=== PATIENT | female | born 1970 | race Asian ===

== ENCOUNTER 2024-06-23 02:17 | Observation (INO) | payer MEDICAID ==
--- NOTE | 2024-06-23 02:23 | ED Physician Documentation ---
PD HPI FOCAL NEURO - Stated complaint Stated Complaint: R SIDE FACE DROOPING - History obtained from History obtained from: Patient - Additional information Additional information: HPI from patient. Patient complains of right facial droop. 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 She did not notice it at any time during the day, although she says that yesterday morning when eating breakfast (approximately 20 hours LOAD OUT PERSON), foods seem to get stuck in her right cheek and liquids were occasionally leaking out of the right side of her mouth during the day. She denies h/o similar symptoms. She denies any other neurologic c/o including numbness, PFEIFFER, visual changes. She denies weakness anywhere besides her right face (no extremity weakness). Review of Systems Constitutional: reports: Reviewed and negative Eyes: reports: Reviewed and negative Ears: reports: Reviewed and negative Cardiac: reports: Reviewed and negative Respiratory: reports: Reviewed and negative GI: reports: Reviewed and negative Neurologic: reports: Focal weakness. denies: Generalized weakness, Numbness, Confused, Altered mental status, Headache, Head injury PD PAST MEDICAL HISTORY - Past Medical History Past Medical History: No - Present Medications Home Medications: Ambulatory Orders Medication Instructions Recorded Confirmed No Known Home Medications 06/23/24 06/23/24 - Allergies Allergies/Adverse Reactions: Allergies Allergy/AdvReac Type Severity Reaction Status Date / Time No Known Drug Allergies Allergy Verified 06/23/24 02:29 PD ED PE NORMAL - Vitals Vital signs reviewed: Yes - General General: Alert and oriented X 3, No acute distress, Well developed/nourished - HEENT HEENT: Atraumatic, PERRL, EOMI - Neck Neck: Supple, no meningeal sign - Cardiac Cardiac: RRR, No murmur - Respiratory Respiratory: No respiratory distress, Clear bilaterally - Abdomen Abdomen: Soft, Non tender - Derm Derm: Normal color, Warm and dry - Extremities Extremities: No edema - Neuro Neuro: Alert and oriented X 3 Eye Opening: Spontaneous Motor: Obeys Commands Verbal: Oriented GCS Score: 15 PD ED PE EXPANDED - Neuro Neuro: CN deficit (right CN VII palsy) NIHSS - Time Time: 02:35 - Level of Consciousness Level of consciousness: (0) Alert, Keenly responsive LOC Questions: (0) Answers both Q's correct LOC Commands: (0) Performs both correctly - Gaze Best Gaze: (0) Normal - Visual Visual: (0) No loss - Facial Palsy Facial Palsy: (2) Partial paralysis - Motor Arms (both separate) Motor Arm (right): (0) No drift Motor Arm (left): (0) No drift - Motor Legs (both separate) Motor Leg (right): (0) No drift Motor Leg (left): (0) No drift - Limb Ataxia Limb Ataxia: (0) Absent - Sensory Sensory: (0) Normal - Best Language Best Language: (0) No aphasia - Dysarthria Dysarthria: (0) Normal - Extinction and Inattention (formally neg Extinction and inattention: (0) No abnormality - Total Score/Results Total Score/Result: 2 Results - Vitals Vitals: Vital Signs - 24 hr 06/23/24 06/23/24 06/23/24 02:26 02:42 02:58 Temperature 35.3 C L Heart Rate 93 86 81 Respiratory 18 16 16 Rate Blood Pressure 254/114 H 214/115 H 217/86 H O2 Saturation 100 100 99 06/23/24 06/23/24 06/23/24 03:20 03:25 03:30 Temperature Heart Rate 84 81 82 Respiratory 18 18 18 Rate Blood Pressure 203/105 H 204/105 H 203/102 H O2 Saturation 100 100 100 06/23/24 06/23/24 06/23/24 03:35 03:50 04:05 Temperature Heart Rate 86 80 82 Respiratory 18 16 Rate Blood Pressure 204/105 H 202/106 H 191/110 H O2 Saturation 100 100 06/23/24 06/23/24 04:20 04:30 Temperature Heart Rate 87 82 Respiratory 20 18 Rate Blood Pressure 213/107 H 202/120 H O2 Saturation 99 100 Oxygen O2 Source Room air - EKG (time done) No standard instances EKG releavant findings:: EKG personally interpreted by author of this note. Relevant findings are: Rate: Rate (enter#) (91) Rhythm: NSR [place]: LAD Intervals: Normal MS QRS: Normal Ischemia: Normal ST segments - Labs Labs: Laboratory Tests 06/23/24 06/23/24 06/23/24 02:52 02:52 02:52 WBC 6.9 RBC 4.73 Hgb 13.4 Hct 41.7 MCV 88.2 MCH 28.3 MCHC 32.1 RDW 12.5 Plt Count 266 MPV 8.6 Neut # (Auto) 4.2 Lymph # (Auto) 2.0 [place] # (Auto) 0.5 Eos # (Auto) 0.1 Baso # (Auto) 0.0 Absolute Nucleated RBC 0.00 Nucleated RBC % 0.0 PT 11.8 INR 1.1 APTT 34.6 H Sodium 139 Potassium 3.5 Chloride 104 Carbon Dioxide 27 Anion Gap 8.0 BUN 16 Creatinine 0.8 Estimated GFR (MDRD) 75 L Glucose 127 H Calcium 9.7 Total Bilirubin 0.6 AST 19 ALT 15 Alkaline Phosphatase 52 Total Protein 7.9 Albumin 4.7 Globulin 3.2 Albumin/Globulin Ratio 1.5 Triglycerides Cholesterol LDL Cholesterol, Calc VLDL Cholesterol HDL Cholesterol LDL/HDL Ratio Cholesterol/HDL Ratio Lipase 32 06/23/24 02:52 WBC RBC Hgb Hct MCV MCH MCHC RDW Plt Count MPV Neut # (Auto) Lymph # (Auto) [place] # (Auto) Eos # (Auto) Baso # (Auto) Absolute Nucleated RBC Nucleated RBC % PT INR APTT Sodium Potassium Chloride Carbon Dioxide Anion Gap BUN Creatinine Estimated GFR (MDRD) Glucose Calcium Total Bilirubin AST ALT Alkaline Phosphatase Total Protein Albumin Globulin Albumin/Globulin Ratio Triglycerides 210 Cholesterol 186 LDL Cholesterol, Calc 104 VLDL Cholesterol 42 HDL Cholesterol 40 L LDL/HDL Ratio 2.6 Cholesterol/HDL Ratio 4.7 Lipase - Rads (name of study) CTH stroke protocol Relevant Findings:: Prelim report reviewed, See rad report CXR Relevant Findings:: Prelim report reviewed, See rad report CTA head/neck Relevant Findings:: Prelim report reviewed, See rad report PD Medical Decision Making - ED course Complexity details: reviewed results, re-evaluated patient, considered differential, d/w patient ED course: Patient presents with right-sided facial droop. Mina's palsy is highly suspect. I consulted with Dr. Lomeli (neurologist on-call for the telestroke service), and he recommends proceeding with stroke-oriented work-up (including CTH, CTA head/neck). He will recontact me once he has a chance to review these images. Regarding thrombolytics, thrombolytics are not appropriate in this particular case for 2 main reasons: (1) the patient's description of symptoms and the findings on physical exam are most consistent with Mina's palsy and not CVA, and (2) last known normal is unclear. While the patient first noticed the facial droop approximately 2 hours prior to arrival, she also comments on difficulty with food and liquids since yesterday morning on the right side of her mouth, which suggests the symptoms started well outside of a 3-hour window. Given these two factors, I believe the potential risks of thrombolytics outweigh the potential benefits. Another consideration regarding thrombolytics is the low NIHSS (2). Yet another consideration is persistently high blood pressures (210s/110s); will give labetalol and titrate to affect blood pressure control. Upon completion of ED testing including CTH, CTA head/neck, blood tests, CXR, EKG, I heard back from Dr. oLmeli. He recommends admission for completion of C VA testing (specifically MRI, echocardiogram). He recommends ASA and statin. I then d/w Dr. Valladares ([facility]) who accepts patient for admission to hospitalist service at [facility]. - TPA CVA checklist Inclusion crititeria: positive: Sig neuro deficit, CT no bleed. negative: Onset know < 4.5 hr Relative contraindications: positive: Too mild Departure - Departure Disposition: ED Place in Observation Clinical Impression: Facial droop Hypertension Qualifiers: Hypertension type: unspecified Qualified Code(s): I10 - Essential (primary) hypertension Condition: Stable Discharge Date/Time: 06/23/24 05:13
[2024-06-23] MEDS ORDERED: iohexoL-300 100 ML VIAL ONE ×2 (02:51→10:58)
[2024-06-23 02:56] LABS: BASOPHILS % (AUTO) 0.3 %; EOSINOPHILS # (AUTO) 0.1 10^3/uL (0.0-0.7); EOSINOPHILS % (AUTO) 1.7 %; HCT - HEMATOCRIT 41.7 % (37.0-47.0); HGB - HEMOGLOBIN 13.4 g/dL (12.0-16.0); LYMPHOCYTES % (AUTO) 28.8 %; MEAN CORPUSCULAR HEMOGLOBIN 28.3 pg (27.0-31.0); MEAN CORPUSCULAR HGB CONC 32.1 g/dL (32.0-36.0); MEAN CORPUSCULAR VOLUME 88.2 fL (81.0-99.0); MEAN PLATELET VOLUME 8.6 fL (7.9-10.8); MONOCYTES # (AUTO) 0.5 10^3/uL (0.0-1.0); MONOCYTES % (AUTO) 7.4 %; NEUTROPHILS # (AUTO) 4.2 10^3/uL (1.5-6.6); NEUTROPHILS % (AUTO) 61.5 %; PLT - PLATELET COUNT 266 10^3/uL (130-450); RED BLOOD COUNT 4.73 10^6/uL (4.20-5.40); RED CELL DISTRIBUTION WIDTH 12.5 % (12.0-15.0); WHITE BLOOD COUNT 6.9 x10^3/uL (4.8-10.8)
[2024-06-23 03:05] LABS: PARTIAL THROMBOPLASTIN TIME 34.6 secs (24.9-33.3)
[2024-06-23 03:10] LABS: INR 1.1 (0.8-1.2); PT - PROTHROMBIN TIME 11.8 secs (9.9-12.6)
[2024-06-23 03:15] LABS: ALBUMIN 4.7 g/dL (3.2-5.5); ALBUMIN/GLOBULIN RATIO 1.5 (1.0-2.2); BILIRUBIN,TOTAL 0.6 mg/dL (0.2-1.0); CALCIUM 9.7 mg/dL (8.5-10.3); CREATININE 0.8 mg/dL (0.6-1.3); POTASSIUM 3.5 mmol/L (3.5-4.5); TOTAL PROTEIN 7.9 g/dL (6.4-8.9)
[2024-06-23] MEDS: LABETALOL 20 MG/4 ML SYRINGE IVP STA (03:20)
[2024-06-23] MEDS: iohexoL-300 100 ML VIAL IVP ONE (03:23)
[2024-06-23] MEDS: ASPIRIN CHEW 81 MG TABLET PO STA (04:33)
[2024-06-23] MEDS ORDERED: ACETAMINOPHEN 325 MG TABLET PO PRN (04:34)
[2024-06-23] MEDS ORDERED: SODIUM CHLORIDE FLUSH 0.9% 10 ML SYRINGE IVP PRN (04:34)
[2024-06-23] MEDS ORDERED: ONDANSETRON 4 MG/2 ML VIAL IVP PRN (04:34)
--- NOTE | 2024-06-23 04:50 | HISTORY & PHYSICAL EXAMINATION ---
Chief Complaint - Chief Complaint Chief Complaint: right sided facial droop History of Present Illness - Admitted From Admitted From:: ED - History Obtained From Records Reviewed: EMR History obtained from: Patient and ED Exam Limitations: Telemedicine - History of Present Illness HPI Comment/Other: 54F c no significant medical hx p/w right facial droop. Patient reports sxs started around 2300 prior to getting ready for bed. Patient earlier had noted eating with liquid dripping out the side of her mouth. Patient otherwise mentioned no headache. No fever. No URI sxs. No vision change. No trauma. Patient presented to the ED and underwent CT imaging. ED reports c tele neurologist and received recommendation to proceed with stroke workup. Meds/Allgy - Home Medications Home Medications: Ambulatory Orders Medication Instructions Recorded Confirmed No Known Home Medications 06/23/24 06/23/24 - Allergies Allergies/Adverse Reactions: Allergies Allergy/AdvReac Type Severity Reaction Status Date / Time No Known Drug Allergies Allergy Verified 06/23/24 02:29 Review of Systems - Other Findings Other Findings: negative unless mentioned differently Exam - Vital Signs Reviewed Vital Signs: Yes Vital Signs: Vital Signs x48h Temp Pulse Resp BP Pulse Ox 06/23/24 04:30 82 18 202/120 H 100 06/23/24 04:20 87 20 213/107 H 99 06/23/24 04:05 82 16 191/110 H 100 06/23/24 03:50 80 18 202/106 H 100 06/23/24 03:35 86 204/105 H 06/23/24 03:30 82 18 203/102 H 100 06/23/24 03:25 81 18 204/105 H 100 06/23/24 03:20 84 18 203/105 H 100 06/23/24 02:58 81 16 217/86 H 99 06/23/24 02:42 86 16 214/115 H 100 06/23/24 02:26 35.3 C L 93 18 254/114 H 100 - Physical Exam General Appearance: positive: No acute distress, Alert Eyes Bilateral: positive: Normal inspection ENT: positive: ENT inspection nml, Other (right facial droop) Neck: positive: Nml inspection Extremities: positive: Nml appearance Neurologic/Psychiatric: positive: Oriented x3, CN's nml (2-12), Sensation nml, Weakness (right facial droop) Conclusion/Plan - Problem List (1) Facial droop Conclusion/Plan: unclear etiology of the right facial droop. stroke vs [place] Palsy. per tele neurology recommendation, proceed with MRI/MRA brain/head/neck. neuro checks. tele monitoring. echo (2) Hypertension Conclusion/Plan: significantly elevated BP. no prior hx of HTN. will followup MRI/MRA to prior to management of hypertension. Qualifiers: Hypertension type: unspecified Qualified Code(s): I10 - Essential (primary) hypertension - Lab Results Lab results reviewed: Yes Fish Bones: 06/23/24 02:52 06/23/24 02:52 - Diagnostic Imaging Results Diagnostic Imaging Results: positive: Other (spoke to ED staff. imaging pending) Core Measures - Anticipated LOS I expect patient to be DC'd or transferred within 96 hours.: Yes - Issues Hospital Issues and Management Plan: The patient consented to receive this telemedicine service, which I performed via live two-way audiovisual equipment. The patient is at ([facility]) and I am physically in [facility]. A nurse assisted me in the visit. Full code SCD Observation Meg Valladares DO Internal Medicine [employer] Tele Joint Setter - DVT/VTE - Prophylaxis VTE/DVT Device ordered at admit?: Yes Telemedicine Consult Details - Provider Location & Consult Time Telemedicine consultation conducted via videoconferencing?: Yes List names and roles of persons who participated in consult:: ED staff and patient Telemedicine provider location:: [facility] Time Telemedicine consult began:: 04:25 Time Telemedicine consult completed:: 05:25
[2024-06-23 05:16] LABS: CHOL/HDL RATIO 4.7 (<4.4); CHOLESTEROL 186 mg/dL; HDL CHOLESTEROL 40 mg/dL; LDL CHOLESTEROL,CALCULATED 104 mg/dL; LDL/HDL RATIO 2.6 (<4.4); TRIGLYCERIDES 210 mg/dL; VLDL CHOLESTEROL 42 mg/dL
[2024-06-23] MEDS: ATORVASTATIN 40 MG TABLET PO SCH (05:58)
[2024-06-23] MEDS ORDERED: GADOTERATE MEGLUMINE 10 MMOL/20 ML VIAL ONE (07:40)
[2024-06-23] MEDS: ASPIRIN EC 81 MG TABLET PO SCH (08:35)
[2024-06-23 09:04] LABS: AMPHETAMINE SCREEN,URINE NEGATIVE (NEGATIVE); BARBITURATE SCREEN,UR NEGATIVE (NEGATIVE); BENZODIAZEPINES SCREEN, URINE NEGATIVE (NEGATIVE); BUPRENORPHINE SCREEN, URINE NEGATIVE (NEGATIVE); COCAINE SCREEN URINE NEGATIVE (NEGATIVE); METHADONE SCREEN, URINE NEGATIVE (NEGATIVE); METHAMPHETAMINES SCREEN, URINE NEGATIVE (NEGATIVE); OPIATE SCREEN, URINE NEGATIVE (NEGATIVE); OXYCODONE SCREEN, URINE NEGATIVE (NEGATIVE); THC CANNABINOID SCREEN, URINE NEGATIVE (NEGATIVE); TRICYCLIC ANTIDEPRESSANT,URINE NEGATIVE (NEGATIVE)
--- NOTE | 2024-06-23 09:25 | CT Report ---
PROCEDURE: Head W/O Stroke Protocol INDICATIONS: right facial droop TECHNIQUE: Noncontrast 4.5 mm thick angled axial sections acquired from the foramen magnum to the vertex, with c oronal reformats. For radiation dose reduction, the following was used: automated exposure control, adjustment of mA and/or kV according to patient size. COMPARISON: None. FINDINGS: Image quality: Excellent. CSF spaces: Basal cisterns are patent. No extra-axial fluid collections. Ventricles are normal in size and shape. Brain: No midline shift. No intracranial masses or hemorrhage. [place]-white matter interface is norm al. Mild to moderate periventricular deep white matter hypodensities, nonspecific, most commonly rep resenting sequelae of small vessel ischemic change. Skull and face: Calvarium and visualized facial bones are intact, without suspicious lesions. Sinuses: Visualized sinuses and mastoids are clear. IMPRESSION: No acute intracranial process. Mild to moderate periventricular deep white matter hypodensities. Typi desi, this represents sequelae of small vessel ischemic change. Comment: Brain MRI may be helpful. Findings are concordant with preliminary interpretation provided by [facility], which wa s completed on 06/23/2024 at 0333 hours. This study fulfills neurological imaging criteria for inclusion or exclusion of acute stroke therapie s based on available published neurological imaging guidelines. Reviewed by: Canelo Rucker MD on 06/23/2024 9:24 AM PDT Approved by: Canelo Rcuker MD on 06/23/2024 9:24 AM PDT Station ID: [id number]
--- NOTE | 2024-06-23 09:39 | XRAY Report ---
PROCEDURE: Chest 2V INDICATIONS: right facial droop TECHNIQUE: 2 views of the chest were acquired. COMPARISON: None. FINDINGS: Surgical changes and devices: None. Lungs and pleura: No pleural effusions or pneumothorax. Lungs are clear. Mediastinum: Mediastinal contours appear normal. Heart size is normal. Bones and chest wall: No suspicious bony lesions. Overlying soft tissues appear unremarkable. IMPRESSION: No acute cardiopulmonary process. Findings are concordant with preliminary interpretation provided by [facility]. Reviewed by: Brett Villafuerte MD on 06/23/2024 9:37 AM PDT Approved by: Brett Villafuerte MD on 06/23/2024 9:37 AM PDT Station ID: [id number]
--- NOTE | 2024-06-23 09:40 | CT Report ---
PROCEDURE: Angio Head/Neck INDICATIONS: right facial droop TECHNIQUE: After the administration of intravenous contrast, 1 mm thick sections acquired from the aortic arch t hrough the [place]. 3-dimensional [id number]-[id number]-[id number] (MIP) and/or volume renderin g reformats were acquired of the central intracranial vasculature and neck separately. For radiation dose reduction, the following was used: automated exposure control, adjustment of mA and/or kV acco rding to patient size. CONTRAST: Omni 300, 80mls COMPARISON: CT head from the same date. FINDINGS: Image quality: Diagnostic. HEAD CT: CSF Spaces: Basal cisterns are patent. No extra-axial fluid collections. Ventricles are normal in size and shape. Brain: No acute intracranial process. Mild to moderate periventricular hypodensities. Skull and face: Calvarium and visualized facial bones appear intact, without suspicious lesions. Sinuses: Visualized sinuses and mastoids are clear. HEAD CT ANGIOGRAPHY: Anterior circulation: Intracranial internal carotid arteries are normal in size and flow. The flow within the paired anterior cerebral arteries is normal and symmetric. The flow within the middle cer ebral arteries is normal and symmetric. The anterior communicating artery is seen. No aneurysms are seen. Posterior circulation: Visualized portions of the vertebral arteries demonstrate normal caliber, and join to form a normal appearing basilar artery. Flow within the posterior cerebral arteries is norm al and symmetric. No aneurysms are seen. NECK CT ANGIOGRAPHY: Carotid system: The great vessels demonstrate a conventional anatomy as they arise from the aortic a rch. The origins of the common carotid arteries appear patent. The common carotid arteries demonstr ate normal caliber and courses. The bifurcation regions are both widely patent. The internal caroti d arteries demonstrate normal calibers and courses. Posterior circulation: The origins of the vertebral arteries both appear widely patent. The more talley perior extracranial portions of both vertebral arteries also demonstrate normal courses and calibers. They join to form a normal appearing basilar artery. Soft tissues: Visualized neck soft tissues demonstrate no suspicious abnormalities. Bones: No suspicious bony lesions. Visualized cervical spine appears normally aligned. There is a broad-based right paracentral disc protrusion at C5-C6 which results in moderate canal stenosis. Refe rence sagittal images 42 and 43 of series 9. IMPRESSION: No significant intracranial arterial abnormality is seen. No significant abnormality is seen within the arteries of the neck. A disc protrusion at C5-C6 is incidentally noted, resulting in moderate canal stenosis. Findings are concordant with preliminary interpretation provided by [facility]. The estimate of stenosis included in the report of the imaging study was calculated using the NASCET method Reviewed by: Canelo Rucker MD on 06/23/2024 9:38 AM PDT Approved by: Canelo Rucker MD on 06/23/2024 9:38 AM PDT Station ID: [id number]
[2024-06-23] MEDS: SODIUM CHLORIDE FLUSH 0.9% 10 ML SYRINGE IVP SCH (09:47)
[2024-06-23 11:36] LABS: ESTIMATED AVERAGE GLUCOSE 126 mg/dL (70-100)
--- NOTE | 2024-06-23 12:04 | PROVIDER PROGRESS NOTE ---
Subjective - Prog Note Date Prog Note Date: 06/23/24 Prog Note Time: 09:00 - Subjective Pt reports feeling: No change Subjective: Ms. Sanderson presented to the ED on 06/22 in the evening with CN VII deficit on the right. She had a right facial droop, difficulty closing the eyelid, and asymmetric eyebrow raise. Sensation is intact. She reports noticing difficulty with chewing food and fluid leaking out of her right cheek in the morning. Last night she noticed facial droop when she looked in the mirror and came in 2 hrs after she noticed the droop. Initial differential was Mina's palsy vs CVA in the ED, with Mina's palsy being the leading differential. She was treated with atorvastatin and loading dose of ASA at the recommendation of the teleneurologist while she was worked up for CVA. Her symptoms exceeded the window for TPA and it was determined she was not a candidate if her deficit was related to a CVA. No treatment for Mina's palsy was initiated in the ED as she is still in the diagnostic workup. Upon assessment this morning she is seated in bed, alert and oriented, without slurred speech. She has no other neuro deficits aside from the right facial droop, ambulates without difficulty, negative arm drift, EOM intact, no visual deficits, no headache, no dizziness. She reports intermittent pain in her right zygomatic and mandibular area over the past 2 days, described as a dull ache, not currently present, and has a loose 2nd molar in her upper jaw. She denies any viral prodrome or recent illness, trauma, or oral lesions. She has no tenderness or fluctuance around the molar on examination. She has no previous episodes of facial paralysis and has not seen a PCP in 5 years or established care since she moved to [facility] 5 years ago. She has not seen a dentist in years. She states her father had Mina's palsy 18 years ago and was left with permanent facial droop. She denies cough, nasal congestion, sore throat, neck stiffness, joint pain, chest pain, abdominal pain, nausea, vomitting, diarrhea or constipation, or dysuria. At this time, her presentation is consistent with Mina's palsy. I will complete the work-up for CVA, including head/neck MRI and ECHO. I will also get a maxillofacial CT to evaluate for dental pathology. She will be started on prednisone for 7 days and a lyme test will be done. At this time, there is no indication for anti-viral medication and I will wait on the maxillofacial CT to determine if antibiotics are needed. Current Medications - Current Medications Current Medications: Active Medications Generic Name Dose Route Start Last Admin Trade Name Freq PRN Reason Stop Dose Admin Acetaminophen 650 mg 06/23/24 04:34 Acetaminophen 325 Mg Tablet PO Q4HR PRN Pain 1 to 4, or Fever Aspirin 81 mg 06/23/24 09:00 06/23/24 08:35 Aspirin Ec 81 Mg Tablet PO Not Given DAILY [facility] Atorvastatin Calcium 40 mg 06/23/24 04:33 06/23/24 08:35 Atorvastatin 40 Mg Tablet PO Not Given DAILY [facility] Chlorhexidine Gluconate 15 ml 06/23/24 12:00 Chlorhexidine Gluconate 15 Ml Udc PO BID [facility] Labetalol HCl 20 mg 06/23/24 08:28 Labetalol 20 Mg/4 Ml Syringe IVP Q4HR PRN Blood Pressure Ondansetron HCl 4 mg 06/23/24 04:34 Ondansetron 4 Mg/2 Ml Vial IVP Q6HR PRN Nausea / Vomiting Sodium Chloride 10 ml 06/23/24 04:34 Sodium Chloride Flush 0.9% 10 Ml Syringe IVP PRN PRN NEEDED PER PROVIDER ORDERS Sodium Chloride 10 ml 06/23/24 09:00 06/23/24 09:47 Sodium Chloride Flush 0.9% 10 Ml Syringe IVP 10 ml 0100,0900,1700 [facility] Administration No Known Home Medications 06/23/24 Objective - Vital Signs/Intake & Output Reviewed Vital Signs: Yes Vital Signs: Vital Signs x48h Temp Pulse Pulse Resp BP BP BP 06/23/24 07:40 36.5 C 76 16 160/105 H 06/23/24 05:41 36.6 C 84 18 181/105 H 06/23/24 05:00 82 190/113 H 06/23/24 04:30 82 18 202/120 H 06/23/24 04:20 87 20 213/107 H 06/23/24 04:05 82 16 191/110 H Pulse Ox 06/23/24 07:40 98 06/23/24 05:41 98 06/23/24 05:00 06/23/24 04:30 100 06/23/24 04:20 99 06/23/24 04:05 100 Intake & Output: Intake & Output 06/20/24 06/21/24 06/22/24 06/23/24 23:59 23:59 23:59 23:59 Intake Total 100 Output Total 0 Balance 100 - Objective General Appearance: positive: No acute distress, Other (54 y/o female, alert and conversant, with right sided facial droop) Eyes Bilateral: positive: Normal inspection, PERRL, EOMI, Other (Difficulty with complete closure of the right eye) ENT: positive: Other (Right upper second molar loose and facing buccal mucosa, no palpable fluctuance, obvious lesion, or tenderness around the gums. (+) clicking without pain of the TMJ with jaw opening, no pain or tenderness to the right maxilla or mandible with palpation.) Neck: positive: Nml inspection Respiratory: positive: Chest non-tender, No respiratory distress, Breath sounds nml Cardiovascular: positive: Regular rate & rhythm, No murmur, No gallop Peripheral Pulses: 2+ Radial (R), 2+ Radial (L), 2+ Dorsalis pedis (R), 2+ Dorsalis pedis (L) Abdomen: positive: Non-tender, No organomegaly, No distention. negative: Guarding, Rebound Back: positive: Nml inspection Skin: positive: Color nml, No rash, Warm, Dry Extremities: positive: Non-tender, Nml appearance, No pedal edema Neurologic/Psychiatric: positive: Oriented x3, Motor nml, Sensation nml, Mood/affect nml. negative: CN's nml (2-12) (CN VII deficit on right with facial droop and absent forehead raise, difficulty closing right eye completely, sensation intact. CN II- & VIII-XII intact.) - Lab Results Fish Bones: 06/23/24 02:52 06/23/24 02:52 Other Labs: Lab Results x24hrs 06/23/24 06/23/24 06/23/24 Range/Units 08:35 07:00 02:52 WBC (4.8-10.8) x10^3/uL RBC (4.20-5.40) 10^6/uL Hgb (12.0-16.0) g/dL Hct (37.0-47.0) % MCV (81.0-99.0) fL MCH (27.0-31.0) pg MCHC (32.0-36.0) g/dL RDW (12.0-15.0) % Plt Count (130-450) 10^3/uL MPV (7.9-10.8) fL Neut # (Auto) (1.5-6.6) 10^3/uL Lymph # (Auto) (1.5-3.5) 10^3/uL [place] # (Auto) (0.0-1.0) 10^3/uL Eos # (Auto) (0.0-0.7) 10^3/uL Baso # (Auto) (0.0-0.1) 10^3/uL Absolute Nucleated RBC x10^3/uL Nucleated RBC % /100WBC PT (9.9-12.6) secs INR (0.8-1.2) APTT (24.9-33.3) secs Sodium (135-145) mmol/L Potassium (3.5-4.5) mmol/L Chloride (101-111) mmol/L Carbon Dioxide (21-32) mmol/L Anion Gap (6-13) BUN (6-20) mg/dL Creatinine (0.6-1.3) mg/dL Estimated GFR (MDRD) (>89) Glucose (74-104) mg/dL POC Whole Bld Glucose 114 H (70 - 100) mg/dL Estimat Average Glucose 126 H (70-100) mg/dL Hemoglobin A1c % 6.0 (4.27-6.07) % Calcium (8.5-10.3) mg/dL Total Bilirubin (0.2-1.0) mg/dL AST (10-42) IU/L ALT (10-60) IU/L Alkaline Phosphatase (42-121) IU/L Total Protein (6.4-8.9) g/dL Albumin (3.2-5.5) g/dL Globulin (2.1-4.2) g/dL Albumin/Globulin Ratio (1.0-2.2) Triglycerides mg/dL Cholesterol ( - 200) mg/dL LDL Cholesterol, Calc ( - 129) mg/dL VLDL Cholesterol mg/dL HDL Cholesterol (60 - ) mg/dL LDL/HDL Ratio (<4.4) Cholesterol/HDL Ratio (<4.4) Lipase (11-82) U/L Urine Opiates Screen NEGATIVE (NEGATIVE) Ur Buprenorphine Scrn NEGATIVE (NEGATIVE) Ur Oxycodone Screen NEGATIVE (NEGATIVE) Urine Methadone Screen NEGATIVE (NEGATIVE) Ur Barbiturates Screen NEGATIVE (NEGATIVE) Ur Tricyclics Screen NEGATIVE (NEGATIVE) Ur Phencyclidine Scrn NEGATIVE (NEGATIVE) Ur Amphetamine Screen NEGATIVE (NEGATIVE) U Methamphetamines Scrn NEGATIVE (NEGATIVE) U Benzodiazepines Scrn NEGATIVE (NEGATIVE) Urine Cocaine Screen NEGATIVE (NEGATIVE) U Cannabinoids Screen NEGATIVE (NEGATIVE) Ur Drug Screen Comment CUTOFF CONC BELOW: 06/23/24 06/23/24 06/23/24 Range/Units 02:52 02:52 02:52 WBC (4.8-10.8) x10^3/uL RBC (4.20-5.40) 10^6/uL Hgb (12.0-16.0) g/dL Hct (37.0-47.0) % MCV (81.0-99.0) fL MCH (27.0-31.0) pg MCHC (32.0-36.0) g/dL RDW (12.0-15.0) % Plt Count (130-450) 10^3/uL MPV (7.9-10.8) fL Neut # (Auto) (1.5-6.6) 10^3/uL Lymph # (Auto) (1.5-3.5) 10^3/uL [place] # (Auto) (0.0-1.0) 10^3/uL Eos # (Auto) (0.0-0.7) 10^3/uL Baso # (Auto) (0.0-0.1) 10^3/uL Absolute Nucleated RBC x10^3/uL Nucleated RBC % /100WBC PT 11.8 (9.9-12.6) secs INR 1.1 (0.8-1.2) APTT 34.6 H (24.9-33.3) secs Sodium 139 (135-145) mmol/L Potassium 3.5 (3.5-4.5) mmol/L Chloride 104 (101-111) mmol/L Carbon Dioxide 27 (21-32) mmol/L Anion Gap 8.0 (6-13) BUN 16 (6-20) mg/dL Creatinine 0.8 (0.6-1.3) mg/dL Estimated GFR (MDRD) 75 L (>89) Glucose 127 H (74-104) mg/dL POC Whole Bld Glucose (70 - 100) mg/dL Estimat Average Glucose (70-100) mg/dL Hemoglobin A1c % (4.27-6.07) % Calcium 9.7 (8.5-10.3) mg/dL Total Bilirubin 0.6 (0.2-1.0) mg/dL AST 19 (10-42) IU/L ALT 15 (10-60) IU/L Alkaline Phosphatase 52 (42-121) IU/L Total Protein 7.9 (6.4-8.9) g/dL Albumin 4.7 (3.2-5.5) g/dL Globulin 3.2 (2.1-4.2) g/dL Albumin/Globulin Ratio 1.5 (1.0-2.2) Triglycerides 210 mg/dL Cholesterol 186 ( - 200) mg/dL LDL Cholesterol, Calc 104 ( - 129) mg/dL VLDL Cholesterol 42 mg/dL HDL Cholesterol 40 L (60 - ) mg/dL LDL/HDL Ratio 2.6 (<4.4) Cholesterol/HDL Ratio 4.7 (<4.4) Lipase 32 (11-82) U/L Urine Opiates Screen (NEGATIVE) Ur Buprenorphine Scrn (NEGATIVE) Ur Oxycodone Screen (NEGATIVE) Urine Methadone Screen (NEGATIVE) Ur Barbiturates Screen (NEGATIVE) Ur Tricyclics Screen (NEGATIVE) Ur Phencyclidine Scrn (NEGATIVE) Ur Amphetamine Screen (NEGATIVE) U Methamphetamines Scrn (NEGATIVE) U Benzodiazepines Scrn (NEGATIVE) Urine Cocaine Screen (NEGATIVE) U Cannabinoids Screen (NEGATIVE) Ur Drug Screen Comment 06/23/24 Range/Units 02:52 WBC 6.9 (4.8-10.8) x10^3/uL RBC 4.73 (4.20-5.40) 10^6/uL Hgb 13.4 (12.0-16.0) g/dL Hct 41.7 (37.0-47.0) % MCV 88.2 (81.0-99.0) fL MCH 28.3 (27.0-31.0) pg MCHC 32.1 (32.0-36.0) g/dL RDW 12.5 (12.0-15.0) % Plt Count 266 (130-450) 10^3/uL MPV 8.6 (7.9-10.8) fL Neut # (Auto) 4.2 (1.5-6.6) 10^3/uL Lymph # (Auto) 2.0 (1.5-3.5) 10^3/uL [place] # (Auto) 0.5 (0.0-1.0) 10^3/uL Eos # (Auto) 0.1 (0.0-0.7) 10^3/uL Baso # (Auto) 0.0 (0.0-0.1) 10^3/uL Absolute Nucleated RBC 0.00 x10^3/uL Nucleated RBC % 0.0 /100WBC PT (9.9-12.6) secs INR (0.8-1.2) APTT (24.9-33.3) secs Sodium (135-145) mmol/L Potassium (3.5-4.5) mmol/L Chloride (101-111) mmol/L Carbon Dioxide (21-32) mmol/L Anion Gap (6-13) BUN (6-20) mg/dL Creatinine (0.6-1.3) mg/dL Estimated GFR (MDRD) (>89) Glucose (74-104) mg/dL POC Whole Bld Glucose (70 - 100) mg/dL Estimat Average Glucose (70-100) mg/dL Hemoglobin A1c % (4.27-6.07) % Calcium (8.5-10.3) mg/dL Total Bilirubin (0.2-1.0) mg/dL AST (10-42) IU/L ALT (10-60) IU/L Alkaline Phosphatase (42-121) IU/L Total Protein (6.4-8.9) g/dL Albumin (3.2-5.5) g/dL Globulin (2.1-4.2) g/dL Albumin/Globulin Ratio (1.0-2.2) Triglycerides mg/dL Cholesterol ( - 200) mg/dL LDL Cholesterol, Calc ( - 129) mg/dL VLDL Cholesterol mg/dL HDL Cholesterol (60 - ) mg/dL LDL/HDL Ratio (<4.4) Cholesterol/HDL Ratio (<4.4) Lipase (11-82) U/L Urine Opiates Screen (NEGATIVE) Ur Buprenorphine Scrn (NEGATIVE) Ur Oxycodone Screen (NEGATIVE) Urine Methadone Screen (NEGATIVE) Ur Barbiturates Screen (NEGATIVE) Ur Tricyclics Screen (NEGATIVE) Ur Phencyclidine Scrn (NEGATIVE) Ur Amphetamine Screen (NEGATIVE) U Methamphetamines Scrn (NEGATIVE) U Benzodiazepines Scrn (NEGATIVE) Urine Cocaine Screen (NEGATIVE) U Cannabinoids Screen (NEGATIVE) Ur Drug Screen Comment - Diagnostic Imaging Diagnostic Imaging Results: positive: Final report reviewed Diagnostic Imaging Comments: CT angiography head/neck: no significant intracranial abnormality, no significant abnormality within the arteries of the neck, disc protrusion C5-C6 resulting in moderate canal stenosis. 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 Sensation is intact. She reports noticing difficulty with chewing food and fluid leaking out of her right cheek yesterday morning (06/22). Last night she noticed facial droop when she looked in the mirror and came in 2 hrs after she noticed the droop. She report intermittent pain in her right zygomatic and mandibular area over the past 2 days, described as a dull ache, not currently present, and has a loose 2nd molar in her upper jaw. She denies any viral prodrome or recent illness, trauma, or oral lesions. It was not clear if her symptoms were vascular or Mina's palsy in the ED, with Mina's palsy being the leading differential. She was treated with atorvastatin and loading dose of ASA at the recommendation of the teleneurologist. Her symptoms exceeded the window for TPA and it was determined she was not a candidate if her deficit was related to a CVA. I will continue ASA 81 mg and atorvastatin 40 mg while the remaining diagnostic tests are completed. At this time, I believe her symptoms are Mina's Palsy is due to inflammation arising from the loose molar along the course of the facial nerve canal. An MRI of the head and neck has been ordered to evaluate for other underlying intracranial pathology that could be contributory per the recommendation of the radiologist. A maxillofacial CT will be done to evaluate for possible dental abscess, signs of infection, or other masses which may be causing the Mina's Palsy. She has no signs of acute infection such as elevated WBCs, fever, pain, fluctuant mass or abnormal vital signs. I will start her on prednisone 60 mg QD for 7 days and order a lyme test as this can also cause CN VII palsy. There is no indication for antiviral treatment at this time. I have also ordered chlorhexadine mouth wash to prevent oral infection due to the Mina's palsy and difficulty clearing food from her right cheek. (2) Disorder of tooth Impression: She complains of intermittent dull right zygomatic and maxillary pain x2 days with a loose upper second molar. She has no pain currently. She denies pain with chewing or jaw pain, notes it has been clicking for several months. She does not receive regular dental care, has several visible carries, and states the tooth has been this way for some time. She has no fever/chills, WBCs are normal, and no temperature. Upon assessment, she has palpable clicking of the TMJ without pain on the right. She has no buccal lesions. The right upper molar is laterally dislpaced and facing outward towards the buccal area. No erythema, swelling, tenderness or fluctuance noted in the gums. I have concern for an underlying dental abscess or infection in the area of the CN VII which could be causing Mina's palsy. I have ordered a maxillofacial CT and will treat with antibiotics if signs of an infection are present. (3) Hypertension Impression: She had persistently elevated BP during her time in the ED with systolic above 200 and diastolic above 100. She was given a single dose of IV labetolol in the ED. Her last BP was 160/105. She denies vision changes, headache, chest pain, dyspnea, or pedal edema. She has not seen a PCP in 5 years and has no dx of HTN. While the hypertension could be due to CVA, it could also indicate uncontrolled primary HTN. I have ordered PRN labetolol 20 mg IV q 6 hrs. She will need to follow-up outpatient for care home BP management. Qualifiers: Hypertension type: unspecified Qualified Code(s): I10 - Essential (primary) hypertension (4) Hyperglycemia, unspecified Impression: She has an elevated blood glucose of 114 with no previous dx of DM. She does not treatment for her blood glucose at this time but I will monitor it with her starting on prednisone. I will also get an A1c to evaluate her baseline.
[2024-06-23] MEDS: predniSONE 20 MG TABLET PO SCH (12:50)
[2024-06-23] MEDS: CHLORHEXIDINE GLUCONATE 15 ML UDC PO SCH (12:50)
[2024-06-23] MEDS: LABETALOL 20 MG/4 ML SYRINGE IVP PRN (13:59)
--- NOTE | 2024-06-23 14:24 | PHARMACY PROGRESS NOTE ---
- Best Possible Medication History Admit Date and Time: 06/23/24 0434 Processed by: Pharmacy (Medication Reconciliation completed by Ciaio Lumite Injector, Mandi) Medications reviewed in ED?: No Medication History completed: Yes Patient Interview: Completed Secondary Source(s): Insurance records As the person ultimately responsible for medication therapy, providers are able to order a medication from an existing home medication list in [facility] via the "Reconcile Routine" prior to Confirmation of that medication by business support manager. Such practice is discouraged except when the physician, in their clinical judgment, deems that a medical need exists for a medication without regard to previous use.
--- NOTE | 2024-06-23 14:56 | MRI Report ---
PROCEDURE: Brain W/WO INDICATIONS: stroke workup CONTRAST: Clariscan 19.6ml TECHNIQUE: Noncontrast axial T1 spin echo, axial T2 fast spin echo, sagittal and axial FLAIR, coronal T2 fast sp in echo, axial gradient echo, axial diffusion and ADC through the brain. After the administration of contrast, axial and coronal T1 spin echo with fat saturation through the brain. COMPARISON: Same day head CT/CTA. FINDINGS: Image quality: Excellent. CSF spaces: Basal cisterns are patent. No extra-axial fluid collections. Ventricles are normal in size and shape. Brain: No midline shift. No intracranial bleeds or masses. No abnormal intracranial enhancement. There is cerebral volume loss for age. There is periventricular white matter chronic small vessel is chemic change. The brainstem appears normal. Diffusion-weighted images demonstrate no acute ischemi c insults. No chronic ischemic insults. Normal intravascular flow voids are present. Leukoaraiosis , commonly caused by chronic small vessel ischemic disease. Age-related volume loss. Skull and face: Calvarial marrow is normal in signal. Orbits appear normal. Sinuses: Sinuses and mastoids appear clear. IMPRESSION: No acute intracranial process. Reviewed by: Brett Villafuerte MD on 06/23/2024 2:54 PM PDT Approved by: Brett Villafuerte MD on 06/23/2024 2:54 PM PDT Station ID: [id number]
--- NOTE | 2024-06-23 14:57 | MRI Report ---
PROCEDURE: Angio Head WO INDICATIONS: stroke workup TECHNIQUE: Noncontrast axial 3-D [id number] MR angiogram, with 3-dimensional maximum intensity projection (M IP) reformats of the internal carotid arteries and posterior circulation then performed. COMPARISON: Same day head CT/CTA. FINDINGS: Image quality: Diagnostic. Anterior circulation: Intracranial internal carotid arteries demonstrate normal size and intralumina l flow signal. The flow within the paired anterior cerebral arteries is normal and symmetric. The f low within the middle cerebral arteries is normal and symmetric. The anterior communicating artery i s seen. No stenoses, occlusions, or aneurysms. Posterior circulation: Visualized portions of the vertebral arteries demonstrate normal caliber, and join to form a normal appearing basilar artery. The flow within the posterior cerebral arteries is normal and symmetric. No stenoses, occlusions, or aneurysms. IMPRESSION: No significant intracranial arterial abnormality is seen. Reviewed by: Brett Villafuerte MD on 06/23/2024 2:56 PM PDT Approved by: Brett Villafuerte MD on 06/23/2024 2:56 PM PDT Station ID: [id number]
[2024-06-23] MEDS: lisinopriL 20 MG TABLET PO ONE (15:05)
[2024-06-23] MEDS: GADOTERATE MEGLUMINE 10 MMOL/20 ML VIAL IVP ONE (15:51)
--- NOTE | 2024-06-23 16:27 | CT Report ---
PROCEDURE: MAXILLOFACIAL W/WO INDICATIONS: possible right maxillary facial abscess CONTRAST: Omni 300 100ml TECHNIQUE: Noncontrast 1.5 mm thick axial images acquired from the mandible through the frontal sinuses, with co wilfredo and sagittal reformatting. After the administration of intravenous contrast, 3.0 mm axial sect ions acquired from the mid-neck to the frontal sinuses, with coronal reformatting. For radiation dos e reduction, the following was used: automated exposure control, adjustment of mA and/or kV accordin g to patient size. COMPARISON: Same day head CT FINDINGS: Image quality: Excellent. Soft tissues: No edema, masses, or fluid collections. No enlarged lymph nodes. Vascular: Visualized vascular structures appear patent throughout. Bony vascular foramina and canal s appear normal. Bones: Facial bones appear intact, without fractures, erosions, or destruction. Visualized portions of the skull base and auditory canals also appear normal. Poor dentition, with multiple periapical lucencies. Abnormal angulation of the right maxillary molar, bony erosion above this region. Sinuses: Paranasal sinuses are aerated without fluid levels, mucosal thickening, or mucoceles. Mast oid air cells are aerated. IMPRESSION: No facial abscess. Poor dentition, with multiple periapical lucencies. Dental referral is recommended. Reviewed by: Brett Villafuerte MD on 06/23/2024 4:26 PM PDT Approved by: Brett Villafuerte MD on 06/23/2024 4:26 PM PDT Station ID: [id number]
[2024-06-23] MEDS ORDERED: CARBOXYMETHYLCELLULOSE OPHTH DROPS RIGHTEYE PRN (17:12)
[2024-06-23] MEDS ORDERED: lisinopriL 20 MG TABLET PO ONE (18:55)
[2024-06-24 05:13] LABS: HCT - HEMATOCRIT 39.1 % (37.0-47.0); HGB - HEMOGLOBIN 12.9 g/dL (12.0-16.0); MEAN CORPUSCULAR HEMOGLOBIN 28.5 pg (27.0-31.0); MEAN CORPUSCULAR VOLUME 86.3 fL (81.0-99.0); MEAN PLATELET VOLUME 8.9 fL (7.9-10.8); RED BLOOD COUNT 4.53 10^6/uL (4.20-5.40); RED CELL DISTRIBUTION WIDTH 12.5 % (12.0-15.0); WHITE BLOOD COUNT 7.8 x10^3/uL (4.8-10.8)
[2024-06-24 05:44] LABS: THYROID STIMULATING HORMONE 0.53 uIU/mL (0.34-5.60)
[2024-06-24 05:45] LABS: ALBUMIN 4.3 g/dL (3.2-5.5); ALBUMIN/GLOBULIN RATIO 1.7 (1.0-2.2); BILIRUBIN,TOTAL 0.8 mg/dL (0.2-1.0); CALCIUM 9.4 mg/dL (8.5-10.3); CREATININE 0.8 mg/dL (0.6-1.3); PHOSPHORUS 4.4 mg/dL (2.5-5.0); POTASSIUM 3.8 mmol/L (3.5-4.5); TOTAL PROTEIN 6.9 g/dL (6.4-8.9)
[2024-06-24] MEDS: lisinopriL 20 MG TABLET PO SCH (08:14)
[2024-06-24 10:05] LABS: ESTIMATED AVERAGE GLUCOSE 126 mg/dL (70-100)
[2024-06-24 10:33] VITALS: O2SAT 94
--- NOTE | 2024-06-24 12:20 | Discharge Plan ---
Discharge Plan Problem Reviewed?: Yes Disposition: Home, Self Care Condition: Stable Prescriptions: Carboxymethylcellulose 1% Opht [Refresh 1% Ophth Drops] 1 drops RIGHTEYE Q4HR PRN #10 ml PRN Reason: Dry Eye Amox/Clav 875/125 [Augmentin 875/125 Tab] 1 tablet PO Q12H 10 Days #20 tablet predniSONE [Deltasone] 60 mg PO DAILYWM #5 tab Atorvastatin [Lipitor] 20 mg PO DAILY #90 tab Chlorhexidine [Peridex] 15 ml PO BID #473 ml lisinopriL [Zestril] 20 mg PO DAILY #90 tab Diet: Cardiac Activity Restrictions: No Restrictions Shower Restrictions: No Driving Restrictions: No Weight Bearing: Full Weight Instruction Topics: Dental Abscess, Decay Tooth, Inhibitors ANDRES, Hypertension Control, DASH Plan Eat Heart Healthy Food Health Concerns: You came into the hospital with symptoms of a stroke. It is very perez that you did not have one. We have done multiple tests to check on the status of your health as well as to make sure you have not had a stroke. You had an MRI of your brain and that looks normal. You had a special CT to look at the arteries in your neck and those look normal. You had an ultrasound to check on your heart and that looks good. We also did a special CAT scan of your face. We were this to look for a really large dental infection. Luckily we did not find a large dental infection. You do have some irritation of your facial nerve as indicated by the droop that you have on the right side of your face. This sometimes takes months to get better. This is called Mina's palsy. To help your Mina's palsy I want you to take 5 additional days of prednisone. The next dose of this medication you should take is tomorrow morning. Take it with food. Also for your dental infection I want you to be on antibiotics for 10 days. You take this twice a day. We checked for diabetes and it looks like you have prediabetes with a hemoglobin A1c of 6%. It is good that you do not have diabetes but you would benefit greatly from reducing your carbohydrate intake and getting some regular exercise. When I say exercise this does not mean that you need to run marathon s. Maybe start with taking a 10-minute walk every day and build from there. We checked your thyroid while you were here in the hospital and that looks good. This is a good thing. It is your choice whether or not to take the cholesterol medication. You can reduce your cholesterol by getting regular exercise and decreasing the amount of animal fat in your diet. You need to seek dental care. 1 option for this would be the [facility] clinic in [place]. Probably best to get on their list. Additionally look up the [facility] free dental clinic that happens once a year. Is not until January and at that point you will know if that is your only option. You also need to seek out primary care. It might be a good idea to call the [facility] clinics [place] and find out what kind of Medicaid they take. If you can switch your Medicaid in August then you can switch your doctor. Thank you for trusting us with your health care. Plan of Treatment: - dental care - primary care - No Smoking: If you smoke, Please STOP! Call for help.
--- NOTE | 2024-06-24 12:31 | DISCHARGE SUMMARY ---
"Discharge Summary Admit Date: 06/23/24 Discharge Date: 06/24/24 Discharging Provider: Hannah Rice PA-C Primary Care Provider: none. 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 Sensation is intact. She reports noticing difficulty with chewing food and fluid leaking out of her right cheek yesterday morning (06/22). Later that day she noticed facial droop when she looked in the mirror and came in 2 hrs after she noticed the droop. She report intermittent pain in her right zygomatic and mandibular area over the 2days prior to admit, described as a dull ache, not currently present, and has a loose 2nd molar in her upper jaw. She denies any viral prodrome or recent illness, trauma, or oral lesions. It was not clear if her symptoms were vascular or Be ll's palsy in the ED, with Mina's palsy being the leading differential. She was treated with atorvastatin and loading dose of ASA at the recommendation of the teleneurologist. Her symptoms exceeded the window for TPA and it was determined she was not a candidate if her deficit was related to a CVA. I will continue ASA 81 mg and atorvastatin 40 mg while the remaining diagnostic tests are completed. At this time, I believe her symptoms are Mina's Palsy is due to inflammation arising from the loose molar along the course of the facial nerve canal. An MRI of the head and neck has been ordered to evaluate for other underlying intracranial pathology that could be contributory per the recommendation of the radiologist. A maxillofacial CT will be done to evaluate for possible dental abscess, signs of infection, or other masses which may be causing the Mina's Palsy. She has no signs of acute infection such as elevated WBCs, fever, pain, fluctuant mass or abnormal vital signs. I will start her on prednisone 60 mg QD for 7 days and order a lyme test as this can also cause CN VII palsy. There is no indication for antiviral treatment at this time. I have also ordered chlorhexadine mouth wash to prevent oral infection due to the Mina's palsy and difficulty clearing food from her right cheek. I echocardiogram was completed showing normal right LV size and systolic function as well as normal left LV size and function. There was no significant valvular pathology. Lyme antibody was negative (2) Disorder of tooth Impression: She complains of intermittent dull right zygomatic and maxillary pain x2 days with a loose upper second molar. She has no pain currently. She denies pain with chewing or jaw pain, notes it has been clicking for several months. She does not receive regular dental care, has several visible carries, and states the tooth has been this way for some time. She has no fever/chills, WBCs are normal, and no temperature. Upon assessment, she has palpable clicking of the TMJ without pain on the right. She has no buccal lesions. The right upper molar is laterally dislpaced and facing outward towards the buccal area. No erythema, swelling, tenderness or fluctuance noted in the gums. I have concern for an underlying dental abscess or infection in the area of the CN VII which could be causing Mina's palsy.Maxillofacial CT did not show any significant lesion although there is there are multiple periapical abscesses. She was discharged to home on Augmentin to treat dental infection it was recommended that she obtain dental care. (3) Hypertension Impression: She had persistently elevated BP during her time in the ED with systolic above 200 and diastolic above 100. She was given a single dose of IV labetolol in the ED. Her last BP was 160/105. She denies vision changes, headache, chest pain, dyspnea, or pedal edema. She has not seen a PCP in 5 years and has no dx of HTN. While the hypertension could be due to CVA, it could also indicate uncontrolled primary HTN. I have started her on lisinopril prior to discharge and have provided her a prescription for lisinopril. I have recommended that she obtain primary care in the community.. 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 Qualifiers: Hypertension type: unspecified Qualified Code(s): I10 - Essential (primary) hypertension (4) Hyperglycemia, unspecified Impression: She has an elevated blood glucose of 114 with no previous dx of DM. Hemoglobin A1c was checked. It is 6.0%. This places her in the range of prediabetes. She was counseled on this she was counseled to increase her physical activity and decrease her carbohydrate intake. - HPI History of Present Illness: 54F c no significant medical hx p/w right facial droop. Patient reports sxs started around 2300 prior to getting ready for bed. Patient earlier had noted eating with liquid dripping out the side of her mouth. Patient otherwise mentioned no headache. No fever. No URI sxs. No vision change. No trauma. Patient presented to the ED and underwent CT imaging. ED reports c tele neurologist and received recommendation to proceed with stroke workup. - CONSULTS | PROCEDURES Consultations: telehealth neurologist Procedures: Head CT shows no acute intracranial process. 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 Chest x-ray shows no acute cardio or pulmonary process Brain MRI shows no acute intracranial process brain MRA shows no significant intracranial arterial abnormality Facial bone CT shows no facial abscess, poor dentition with multiple periapical lucencies. - HOSPITAL COURSE Hospital Course: Admitted with a right facial droop which had developed over the course of the day. She presented to the ED and underwent CT imaging. Recommendation was received from stroke teleneurologist to proceed with stroke workup. Multiple differentials were considered for her right facial droop and she underwent stroke workup which was negative. Overall it was decided that she had a Mina's palsy likely secondary to irritation of the 7th cranial nerve likely due to her dental pathology. She was started on prednisone for course of 7 days no antivirals were started she was discharged home with antibiotics for dental infection. - ALLERGIES Allergies/Adverse Reactions: Allergies Allergy/AdvReac Type Severity Reaction Status Date / Time No Known Drug Allergies Allergy Verified 06/23/24 02:29 - MEDICATIONS Home Medications: Ambulatory Orders Medication Instructions Recorded Confirmed Amox/Clav 875/125 [Augmentin 1 tablet PO Q12H 10 Days #20 tablet 06/24/24 875/125 Tab] Atorvastatin [Lipitor] 20 mg PO DAILY #90 tab 06/24/24 Carboxymethylcellulose 1% Opht 1 drops RIGHTEYE Q4HR PRN #10 ml 06/24/24 [Refresh 1% Ophth Drops] Chlorhexidine [Peridex] 15 ml PO BID #473 ml 06/24/24 lisinopriL [Zestril] 20 mg PO DAILY #90 tab 06/24/24 predniSONE [Deltasone] 60 mg PO DAILYWM #5 tab 06/24/24 - PHYSICAL EXAM AT DISCHARGE General Appearance: positive: No acute distress Eyes Bilateral: positive: Normal inspection ENT: positive: Other (Poor dentition) Neck: positive: Nml inspection Respiratory: positive: Chest non-tender, Breath sounds nml Cardiovascular: positive: Regular rate & rhythm Peripheral Pulses: positive: 2+ Abdomen: positive: Non-tender, No distention Skin: positive: Color nml Extremities: positive: Non-tender, Full ROM, No pedal edema Neurologic/Psychiatric: positive: Oriented x3, Facial droop (right sided, with normal sensation) - LABS Result Diagrams: 06/24/24 04:45 06/24/24 04:45 - SEPSIS Current Stage of Sepsis: Ruled out - FOLLOW UP Follow Up: Given resources for PCP in the community. She has [place] [employer] therefore cannot be seen at [facility] clinics. She was referred to [facility] who we believe will take [place] [employer]. Also given the option for [facility] clinics. I have recommended that she try to see [facility] dental clinic. I have also given her information regarding [facility] dental clinic although this is not till January 2025. - TIME SPENT Time Spent in Discharge (Minutes): 45"
[2024-06-24 12:47] VITALS: BP 157/89
[2024-06-25 07:10] LABS: LYME TOTAL AB CIA Negative (Negative)
== END 2024-06-24 13:45 | disposition home or self-care (01) ==
LOC: ED 02:17 → INTOOBSV 04:34 → MS2 04:34
PROVIDERS: ADMIT Internal Medicine; ATTEND Physician Assistant Medical
DX: G51.0 Bell's palsy (principal); I10 Essential (primary) hypertension; K08.89 Other specified disorders of teeth and supporting structures; R73.03 Prediabetes; K04.7 Periapical abscess without sinus
CPT/HCPCS: 36415; 70450; 70488; 70496; 70498; 70544; 70553; 71046; 80053; 80061; 80306; 83036; 83690; 83735; 84100; 84443; 85025; 85027; 85610; 85730; 86618; 93005; 93307; 96374; 96376; 99285; A9270; A9575; G0378; J7512; Q9967; 83721